=== PATIENT | female | born 1975 | race Caucasian/White ===

== ENCOUNTER 2018-10-09 12:10 | Emergency (ER) | payer OTHER ==
[~2018-10-09] VITALS: Ht 172.7 cm; Wt 77.1 kg
[~2018-10-09 12:10] MED LIST: DEXAMETHASONE 22 MG PO; MESTINON180 MG PO; MULTIVITAMINS PO; PREDNISONE 20 M20 MG PO
[2018-10-09 12:49] LABS: HEMOGLOBIN 11.1 gm/dL (12.0-15.0); MCHC 33.1 g/dL (28.0-37.0); RBC 3.54 mil/uL (4.20-5.00)
[2018-10-09 12:51] LABS: HEMATOCRIT 33.5 % (37.0-47.0); MCH 31.4 pg (26.0-34.0); MCV 94.8 fL (80.0-100.0); RDW 13.5 % (10.5-14.5); WBC 6.8 thou/uL (4.0-11.0)
[2018-10-09 13:00] LABS: CALCIUM 8.6 mg/dL (8.5-10.1); CREATININE 0.7 mg/dL (0.6-1.0); POTASSIUM 3.4 mmol/L (3.5-5.1)
[2018-10-09 13:06] LABS: ALBUMIN 3.9 g/dL (3.4-5.0); TOTAL BILIRUBIN 0.3 mg/dL (<0.1-1.0); TOTAL PROTEIN 7.5 g/dL (6.4-8.2)
[2018-10-09] MEDS ORDERED: CELEXA10 MG PO (13:28)
[2018-10-09] MEDS ORDERED: MESTINON60 MG PO (13:28)
[2018-10-09] MEDS ORDERED: VITAMIN D5000 UNIT PO (13:30)
[2018-10-09] MEDS ORDERED: DSF PO (13:32)
[2018-10-09] MEDS ORDERED: TUMS PO (13:33)
[2018-10-09] MEDS ORDERED: [UNRECOGNIZED DRUG - OTHER] PO (13:33)
[2018-10-09] MEDS ORDERED: FISH OIL 1,001000 M2 PO (13:34)
[2018-10-09] MEDS ORDERED: IRON325 PO (13:34)
[2018-10-09] MEDS ORDERED: dexamethasone PO (13:41)
[2018-10-09 13:59] VITALS: BP 109/63
[2018-10-09 14:05] LABS: ABSOLUTE NEUTROPHILS 4.7 thou/uL (1.4-8.2)
[2018-10-09 14:06] LABS: PLATELET COUNT 3 thou/uL (150-400)
--- NOTE | 2018-10-09 14:31 | EKG ---
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 : 1975 Requested By: Spenser Gonzales Order Number: [id number] MD: Luis Armando Watters Measurements Intervals [place] Rate: 67 P: 88 [place]: 189 QRS: 85 QRSD: 94 T: 54 QT: 411 QTc: 434 Interpretive Statements Sinus rhythm Compared to ECG 08/27/1996 16:35:00 Sinus bradycardia no longer present Right-axis deviation no longer present Electronically Signed On 10-09-2018 14:30:57 RUG SHAMPOOER by Luis Armando Watters [email or web address] <ELECTRONICALLY SIGNED> By: Luis Aramndo Watters MD 10/09/18 1430 1240 1240 Luis Armando Watters MD /[place]
== END 2018-10-09 14:00 | disposition home or self-care (01) ==
LOC: ER 12:10
PROVIDERS: Emergency Medicine
DX: D69.6 Thrombocytopenia, unspecified (principal); Z98.890 Other specified postprocedural states; Z90.89 Acquired absence of other organs; Z90.12 Acquired absence of left breast and nipple

== ENCOUNTER 2019-11-11 11:45 | Inpatient (IN) | payer OTHER ==
[~2019-11-11] VITALS: Ht 172.7 cm; Wt 83.0 kg
[~2019-11-11 11:45] MED LIST changes: +CELEXA10 MG PO; +DSF PO; +FISH OIL 1,001000 M2 PO; +IRON325 PO; +MESTINON60 MG PO; +TUMS PO; +VITAMIN D5000 UNIT PO; +[UNRECOGNIZED DRUG - OTHER] PO; +dexamethasone PO
[2019-11-11 11:46] VITALS: BP 88/60
[2019-11-11 12:14] LABS: URINE BILIRUBIN NEGATIVE (Negative); URINE BLOOD 3+ (Negative); URINE CLARITY CLEAR; URINE COLOR YELLOW; URINE GLUCOSE-RANDOM* NEGATIVE (Negative); URINE KETONES NEGATIVE (Negative); URINE LEUKOCYTES-REFLEX NEGATIVE (Negative); URINE NITRITE-REFLEX NEGATIVE (Negative); URINE PROTEIN (DIPSTICK) TRACE (Negative); URINE SPECIFIC GRAVITY 1.025 (1.005-1.035); URINE UROBILINOGEN 0.2 E.U./dl (0.2-1.0)
[2019-11-11 12:28] LABS: CASTS None Seen /LPF (None Seen); CRYSTALS None Seen /LPF (None Seen); SQUAMOUS 0-3 Few /LPF (0-3)
[2019-11-11 12:29] LABS: BACTERIA-REFLEX 1-9 Few /HPF (None Seen); URINE WBC-REFLEX 0-5 Rare /HPF (0-5)
[2019-11-11 12:33] LABS: RBC 3.62 mil/uL (4.20-5.00)
[2019-11-11 12:35] LABS: HEMATOCRIT 32.6 % (37.0-47.0); HEMOGLOBIN 10.4 gm/dL (12.0-15.0); MCH 28.8 pg (26.0-34.0); MCV 90.1 fL (80.0-100.0); RDW 13.4 % (10.5-14.5); WBC 3.1 thou/uL (4.0-11.0)
[2019-11-11 12:41] LABS: ANION GAP 8 mmol/L (7-16); BUN 13 mg/dL (7-18); CHLORIDE 103 mmol/L (98-107); CO2 27 mmol/L (21-32); CREATININE 0.7 mg/dL (0.6-1.0); GLUCOSE 128 mg/dL (74-106); POTASSIUM 3.6 mmol/L (3.5-5.1); SODIUM 138 mmol/L (136-145)
[2019-11-11 12:51] LABS: ALBUMIN 3.4 g/dL (3.4-5.0); MAGNESIUM 1.7 mg/dL (1.8-2.4); SGOT 24 U/L (15-37); SGPT 23 U/L (30-65); TOTAL BILIRUBIN 0.2 mg/dL (<0.1-1.0); TOTAL PROTEIN 6.9 g/dL (6.4-8.2); TROPONIN-I <0.06 ng/mL (<0.06)
[2019-11-11 13:04] LABS: APTT 25.8 Seconds (24.5-32.8); PROTIME 10.3 Seconds (9.3-11.4)
[2019-11-11 13:33] LABS: PLATELET COUNT 4 thou/uL (150-400)
[2019-11-11 14:02] LABS: ABSOLUTE NEUTROPHILS 2.2 thou/uL (1.4-8.2)
[2019-11-11 14:03] LABS: ANISOCYTOSIS SLIGHT; PLATELET ESTIMATE MARKEDLY DECREASED
[2019-11-11 14:07] LABS: LARGE PLATELETS RARE
[2019-11-11] MEDS ORDERED: TYLENOL WITH CO1 TA1 PO (15:21)
[2019-11-11] MEDS ORDERED: ONDANSETRON ODT8 MG PO (15:21)
[2019-11-11] MEDS ORDERED: DEXAMETHASONE6 MG PO (15:38)
[2019-11-11 18:01] VITALS: BP 94/62
[2019-11-11 20:22] VITALS: BP 98/64
--- NOTE | 2019-11-11 20:36 | NUR ---
ASSUMMED PT CARE AT APPROXIMATELY 1830. PT A&O X4. VITAL SIGNS STABLE. PT COMFORTABLE IN BED. PT ASKED FOR WATER. PT RECIEVED WATER. PT DENIES HAVING FURTHER CONCERNS. FALL PRECAUTIONS IN PLACE. PT DENIED HAVING CHEST PAIN. PT DENIES HAVING SOB. PT DENIED HAVING ACUTE PAIN.
[2019-11-11 20:59] VITALS: BP 91/68; BP 99/61
[2019-11-11 22:57] VITALS: BP 90/59; BP 96/61; BP 97/61
[2019-11-12 01:12] VITALS: BP 96/61
[2019-11-12 05:45] VITALS: BP 98/59
[2019-11-12 07:10] VITALS: BP 95/53
--- NOTE | 2019-11-12 08:21 | NUR ---
PT ALERT AND ORIENTED. 2 UNITS OF PLATELETS TRANSFUSED YESTERDAY, NO REACTION. DENIES PAIN, CHEST PAIN, NAUSEA OR VOMITING. OBGYN VISITED WITH PT LAST NIGHT. NO FURTHER DISTRESS NOTED. WILL CONTINUE WITH PLAN OF CARE.
[2019-11-12 09:03] LABS: % SATURATION 5 % (20-39); IRON 15 ug/dL (50-170); TIBC 305 ug/dL (250-450)
--- NOTE | 2019-11-12 09:34 | EKG ---
[facility] [place] [address] ELECTROCARDIOGRAM REPORT Name: RUTH HERNANDEZ Room #: 201-P ADM IN M.R.#: [id number] Admission: 11/11/19 Attend Phys: Brandon Dior Discharge: Date of : 79 Report #: [id number] THIS REPORT FOR: cc: Teresita Mcfarlane MD, Melanie MD Lundgren,Luan Landis MD [facility] ~ THIS REPORT FOR: //name// 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 : 1975 Requested By: Moe Rodriguez Order Number: [id number] MD: Luan Pineda Measurements Intervals [place] Rate: 82 P: 14 ME: 151 QRS: 80 QRSD: 95 T: 35 QT: 369 QTc: 431 Interpretive Statements Sinus rhythm Nonspecific ST and T wave abnormality Compared to ECG 10/09/2018 12:40:47 T-wave abnormality now present Electronically Signed On 11-12-2019 9:33:27 STOCK MIXER by Luan Pineda [email or web address] <ELECTRONICALLY SIGNED> By: Luan Pineda MD, [facility] 11/12/19 0933 1219 1219 Luan Pineda MD, [facility] /EPI
[2019-11-12 10:49] LABS: FOLIC ACID 36.7 ng/mL (8.6-58.9)
[2019-11-12 11:43] LABS: HEMATOCRIT 22.3 % (37.0-47.0); MCH 28.8 pg (26.0-34.0)
[2019-11-12 11:44] LABS: MCV 90.1 fL (80.0-100.0); RBC 2.47 mil/uL (4.20-5.00); RDW 13.7 % (10.5-14.5); WBC 3.1 thou/uL (4.0-11.0)
[2019-11-12 12:01] LABS: HEMOGLOBIN 7.1 gm/dL (12.0-15.0)
[2019-11-12 15:15] VITALS: BP 103/63
[2019-11-12 15:27] VITALS: BP 101/68; BP 104/66
--- NOTE | 2019-11-12 18:51 | NUR ---
VSS. DENIED HAVING PAIN OR DISCOMFORT. PT RECEIVED I UNIT OF BLOOD. NO ADVERSE REACTION NOTED. WILL CONTINUE TO MONITOR.
[2019-11-12 19:01] LABS: HEMATOCRIT 24.5 % (37.0-47.0)
[2019-11-12 20:10] VITALS: BP 95/69
[2019-11-13] VITALS (7 sets, daily range): BP systolic 90–103; BP diastolic 45–72
[2019-11-13 02:07] LABS: HEMATOLOGY COMMENTS Note: (()); HEMOGLOBIN 7.1 g/dL (11.1-15.9)
--- NOTE | 2019-11-13 04:32 | NUR ---
pt resting quietly in bed, hopes to go home in am, vss, no c/o pain, con't to monitor ppoc.
[2019-11-13 05:08] LABS: HEMATOCRIT 23.5 % (37.0-47.0); HEMOGLOBIN 7.7 gm/dL (12.0-15.0); MCH 29.4 pg (26.0-34.0); MCV 89.2 fL (80.0-100.0); RBC 2.63 mil/uL (4.20-5.00); RDW 13.1 % (10.5-14.5); WBC 5.3 thou/uL (4.0-11.0)
--- NOTE | 2019-11-13 19:03 | NUR ---
ASSUMED CARE OF PT AT SHIFT CHANGE. ASSESSMENTS CHARTED. MEDS GIVEN PER NOV. PT A&OX4. NO C/O PAIN OR DISCOMFORT. D/T LOW PLATELET COUNT, 2 UNITS OF PLATELETS WERE GIVEN. PT TOLERATED WELL. PT REPORTS SEVERAL LOOSE STOOLS. SEVERAL VISITORS THROUGHOUT THE DAY. WILL CONTINUE TO MONITOR AND FOLLOW POC.
--- NOTE | 2019-11-13 22:20 | NUR ---
ASSUMED CARE OF PT AT SHIFT CHANGE. A&0X4, AMB INDEPENDENTLY. SEE SEPARATE INTERVENTIONS FOR ASSSESSMENTS. FOUND MENSTRUATION [place] FOR HER TO TIDE HER OVER UNTIL HER SPOUSE BRINGS MORE TAMPONS. CHILDREN CAME UP TO VISIT. PT'S FAMILY BROUGHT PIZZA FOR STAFF. ENCOURAGED HER TO SIT AT BEDSIDE MOMENTARILY BEFORE RISING TO ENSURE NO DIZZINESS (NO COMPLAINT THUS FAR). STATES SHE'S HAD THIS CONDITION EVER SINCE SHE WAS A TEEN. HR CAN INCREASE TO 120-150S W/AMBULATION. ALSO ENCOURAGED HER TO USE CALL LIGHT FOR ANY NEEDS
[2019-11-14 04:26] LABS: HEMATOCRIT 22.4 % (37.0-47.0); HEMOGLOBIN 7.3 gm/dL (12.0-15.0); MCH 29.2 pg (26.0-34.0); MCHC 32.7 g/dL (28.0-37.0); MCV 89.4 fL (80.0-100.0); RBC 2.5 mil/uL (4.20-5.00); WBC 6.1 thou/uL (4.0-11.0)
[2019-11-14 05:00] VITALS: BP 93/62
--- NOTE | 2019-11-14 07:11 | NUR ---
ALFONSO: PHYSICIAN CALLED THIS A.M. TO ASK THAT PT'S DEXAMETHASONE BE INCREASED TO 40MG FOR TWO DAYS. HE ALSO CAME IN LATE TO VISIT WITH HER W/SAME ORDER CHANGE, YET HADN'T ENTERED IT.
[2019-11-14 07:29] LABS: % SATURATION 4 % (20-39); IRON 15 ug/dL (50-170); TIBC 337 ug/dL (250-450)
[2019-11-14 07:40] VITALS: BP 95/48
[2019-11-14] MEDS ORDERED: DEXAMETHASONE 44 M1 PO (09:00)
[2019-11-14 15:25] VITALS: BP 95/48
--- NOTE | 2019-11-14 16:26 | HC ---
[facility] [place] [address] CONSULTATION Name: RUTH HERNANDEZ Room #: 201-P [facility] IN M.R.#: [id number] Admission: 11/11/19 Attend Phys: Brandon Dior Discharge: 11/14/19 Date of : 79 Report #: [id number] THIS REPORT FOR: cc: Teresita Mcfarlane MD,Teresita Kaur,Des Balderas MD ~ CC: Ede Kaur REASON FOR CONSULT: Chronic ITP. HISTORY OF PRESENT ILLNESS: The patient is a very pleasant 44-year-old female followed by my partner Bette Choi who has a history of chronic ITP for many years. 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 She has also had bone marrow biopsy. She has had Rituxan in the past. Her main issue is that about once or twice a year her periods become quite heavy and then also she has a viral illness. Her platelets drop quite low and said like her platelets fluctuate from very low up into the 200,000, if I understand her correctly. The patient has about a 5-day history of a slight viral illness. She felt warm, maybe it measured temperature 99.5. She also says she has very heavy periods lasting about maybe 7 days at a time. She will use like an external pad along with 2 tampons at a time and maybe has changes every 2 or 3 hours for several days. Clots as large as her thumb. She has been evaluated by Nahed Arriaga for possible other etiologies for her heavy period. Note, the patient has not had any recent nosebleeds, but she did have occasional cough and spits up phlegm and little bits of blood, but it sounds like this happens not infrequently for her, when she has a cold. Denies any headache, any sore throat, any swallowing difficulties, any lymphadenopathy, any abdominal pain other than cramping related to her period, any dysuria, any diarrhea, any constipation, any blood in her stool. Does not think she has dysuria. She has had the vaginal bleeding with her period. PAST MEDICAL HISTORY: Notable for the chronic ITP with past splenectomy, but also administration of Rituxan in the past. She is usually treated with dexamethasone. Also, has a history of the menorrhagia, also upper respiratory infection. Also, the myasthenia gravis. Also, ITP was found in 2000, splenectomy 2001, returned in 2008. Also, has had a breast reduction and a left breast lumpectomy. 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 She has 4 children. I think she said they range in age from about maybe 14-19. She has 3 cats at home. I do not believe she is a smoker or drinker. FAMILY HISTORY: No one else with blood disorders that she mentioned. MEDICATIONS: At this time in the hospital currently include the citalopram 10 mg daily, pyridostigmine 60 mg daily and then also 180 at bedtime, dexamethasone now getting 10 q. 8, Tylenol p.r.n., MiraLax daily, zolpidem nightly, nitroglycerin p.r.n., Zofran p.r.n., IV fluids. Note that she did get a transfusion last night. PHYSICAL EXAMINATION: VITAL SIGNS: Height is 5 feet 8 inches, 172.7 cm, weight 183 pounds or 83.1 kilograms. Blood pressure is 98/59, O2 sat 100%, respirations 16, pulse 65, temperature afebrile at 97.7. Has been afebrile since yesterday afternoon. HEENT: Oropharynx is notable for several small petechiae including both on the hard and the soft palate. There are also several small ecchymoses on her lips measuring about 3 mm x 4 mm. No blood in her nares. Face is symmetrical. Oropharynx without other lesions. LYMPHATICS: No enlarged lymph nodes in the supraclavicular, cervical, axillary or inguinal region. ABDOMEN: Slightly obese. No organomegaly. EXTREMITIES: Without clubbing, cyanosis. There are a few small petechiae. She says she thinks they are smaller today. ASSESSMENT AND PLAN: 1. Chronic idiopathic thrombocytopenic purpura with exacerbation, possibly related to menstrual cycle. We will check B12, folate, iron panel. Patient should avoid fish oil. I note that was on her medication list, but she says she has not taken it for some time. We will also ask pathology to look for peripheral smear to make sure there is no [place] bodies present or they are present, which they should be if her spleen is gone. We will also check immature platelet fracture. The patient may wish to consider a hysterectomy or Promacta. We will defer to Dr. Bette Choi her primary oncologist. 2. Heavy periods, seen by gynecology, looking for other causes. Ultrasound being done, currently pending. We will defer to others the benefit of possible hysterectomy to reduce blood loss and platelet consumption. 3. Recent upper respiratory infection, supportive measures. 4. Myasthenia gravis, Mestinon replacement. 5. Mood. Continues the Lexapro. We will be available and follow with you. [facility] [address] [place] [address] CONSULTATION Name: RUTH HERNANDEZ Room #: 201-P [facility] IN ..#: [id number] Admission: 11/11/19 Attend Phys: Brandon Dior Discharge: 11/14/19 Date of : 79 Report #: [id number] Also, continue the dexamethasone for 4 days as above. Await today's blood count. <ELECTRONICALLY SIGNED> By: Des Kaur MD 11/14/19 1626 0742 [id number] Des Kaur MD /nt
--- NOTE | 2019-11-14 18:08 | NUR ---
ASSUMED CARE OF PT AT SHIFT CHANGE. ASSESSMENT CHARTED. MEDS GIVEN PER NOV. NO C/O PAIN OR SOA. PLATELET COUNT IMPROVED. INFUSED ON BAG OF IRON AND THEN COMPLETED DISCHARGE ORDERS AND INSTRUCTIONS. TELE AND IV DC'D. PT LEFT VIA WHEELCHAIR WITH AID AND DAUGHTER TO PRIVATE CAR.
[2019-11-14 18:16] VITALS: BP 95/48
== END 2019-11-14 15:56 | disposition home or self-care (01) | DRG 813 ==
LOC: ER 11:45 → EROBS 17:48 → 2N 17:48 → EROBS 18:39 → 2N 18:40
PROVIDERS: Emergency Medicine; Internal Medicine Hematology & Oncology; ADMIT Hospitalist
PROC: 30233R1 Transfusion of Nonautologous Platelets into Peripheral Vein, Percutaneous Approach (ICD-10-PCS; principal; 2019-11-11)
PROC: 30233N1 Transfusion of Nonautologous Red Blood Cells into Peripheral Vein, Percutaneous Approach (ICD-10-PCS; 2019-11-12)
DX: D69.3 Immune thrombocytopenic purpura (principal); J06.9 Acute upper respiratory infection, unspecified; N92.0 Excessive and frequent menstruation with regular cycle; G70.00 Myasthenia gravis without (acute) exacerbation; F39 Unspecified mood [affective] disorder; I95.1 Orthostatic hypotension; D50.0 Iron deficiency anemia secondary to blood loss (chronic); N83.209 Unspecified ovarian cyst, unspecified side; Z90.81 Acquired absence of spleen; Z79.899 Other long term (current) drug therapy
CPT/HCPCS: 10081